=== PATIENT | female | born 1935 | race Caucasian/White ===

== ENCOUNTER → 2016-12-03 | Outpatient (CLI) | payer MEDICARE, OTHER ==
[~2016-12-03] MED LIST: ADVAIR HFA 115-28 GM INH; ASPIR-LOW81 MG PO; B-1100 MG PO; B-122500 MCG PO; DIOVAN320 MG PO; FLONASE 0.05% N16 GM; FOLIC ACID 1 MG1 MG PO; LOVENOX SY30 MG/0.3 SC; MAG-OX 400 TAB400 MG PO; PERCOCET 5-3251 EACH PO; PLETAL 100 MG100 MG PO; PROVENTIL HFA 61 INH INH; SECTRAL CAP 20200 MG PO; SPIRIVA RESPIMAT4 GM INH; VITAMIN D2000 UNIT PO; ZANTAC150 MG PO; ZYRTEC10 MG PO
== END ==
LOC: KOH-I 13:57
DX: I65.23 Occlusion and stenosis of bilateral carotid arteries (principal); I73.9 Peripheral vascular disease, unspecified
CPT/HCPCS: 93880; 93925